=== PATIENT | male | born 1995 | race Caucasian/White ===

== ENCOUNTER 2024-07-31 06:15 | Emergency (ER) | payer OTHER ==
[~2024-07-31] VITALS: Ht 170.2 cm; Wt 97.5 kg
[2024-07-31] MEDS ORDERED: NAPROXEN250 MG PO (06:42)
== END 2024-07-31 06:47 | disposition home or self-care (01) ==
LOC: ED 06:15
DX: R07.89 Other chest pain (principal)

== ENCOUNTER 2024-09-07 06:36 | Emergency (ER) | payer OTHER ==
[~2024-09-07 06:36] MED LIST: NAPROXEN250 MG PO
[2024-09-07] MEDS ORDERED: Dexamethasone Sodium Phospha 20 MG/5 ML VIAL IM ONE (07:20)
[2024-09-07] MEDS ORDERED: MEDROL DOSEPAK4 MG PO (08:09)
== END 2024-09-07 08:23 | disposition home or self-care (01) ==
LOC: ED 06:36
DX: B34.9 Viral infection, unspecified (principal); Z20.822 Contact with and (suspected) exposure to COVID-19; R21 Rash and other nonspecific skin eruption; R07.89 Other chest pain; Z79.899 Other long term (current) drug therapy